=== PATIENT | female | born 1995 | race Caucasian/White ===

== ENCOUNTER 2023-05-28 12:28 | Emergency (ER) | payer OTHER, SELFPAY ==
[2023-05-28 13:19] VITALS: BP 129/95; PULSE 101; RESP 20; TEMP 37.1; O2SAT 99; BMI 38.3
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
[2023-05-28] MEDS: Fluorescein Sodium STRIP 1 STRIP EYE-RIGHT (15:21)
[2023-05-28 16:59] VITALS: BP 128/86; PULSE 98; RESP 16; O2SAT 97
== END 2023-05-28 17:05 | disposition home or self-care (01) ==
PROVIDERS: Emergency Provider Emergency Medicine
DX: H57.13 Ocular pain, bilateral (principal)
CPT/HCPCS: 99283; 99284

== ENCOUNTER 2023-07-15 11:21 | Emergency (ER) | payer OTHER, SELFPAY ==
[2023-07-15 11:36] VITALS: BP 142/98; PULSE 96; RESP 16; TEMP 36.9; O2SAT 97; BMI 32.6
--- NOTE | 2023-07-15 11:43 | ED.GENADULT ---
HPI - General Adult General Chief complaint: Abdominal Pain Stated complaint: Abd pain Time Seen by Provider: 07/15/23 16:24 History of Present Illness HPI narrative: 28 years old with no significant past medical history presents emergency room with 2 days' history of abdominal pain. Patient also reports nonbloody diarrhea and headache. Patient reports that the pain is localized in the lower quadrants, reports some increased urinary frequency and dysuria. Denies chest pain, shortness of breath, back pain, chills or fever. Reports 1 single episode of vomiting and nausea. Reports the pain is moderate in intensity. History is taken with the help of a Creole industrial controls technician Related Data Previous Rx's Medication Instructions Recorded loratadine 10 mg capsule 10 mg PO DAILY #14 caps 05/28/23 acetaminophen 500 mg tablet 1,000 mg (2 x 500 mg) PO Q6H PRN 07/15/23 (Acetaminophen Extra Strength) fever or pain #60 tabs ibuprofen 400 mg tablet 400 mg PO Q8H PRN pain #20 tabs 07/15/23 ondansetron 4 mg disintegrating 4 mg PO Q8H PRN nausea and 07/15/23 tablet vomiting #14 tabs Allergies Allergy/AdvReac Type Severity Reaction Status Date / Time No Known Allergies Allergy Verified 05/28/23 13:23 Review of Systems Review of Systems: Yes all other systems are reviewed and are negative [facility] Social History Social History Smoked in Last 30 Days: No Use of substances other than those prescribed or required for medical reasons: No Advance Directives: No Advance Directives Information Provided: Yes Patient : No Physical Exam ED Vital Signs: Vital Signs - 24 hr 07/15/23 11:36 07/15/23 16:29 Temperature 98.5 F 98.6 F Pulse Rate 96 98 Respiratory Rate 16 16 Blood Pressure 142/98 H 132/71 Pulse Oximetry 97 100 Oxygen Delivery Method Room Air Room Air BMI result Body Mass Index 32.6 General: Alert, Not in Distress Skin: No rash, warm HEENT: Atraumatic, No Exudate or Pharyngeal Erythema Resp: Normal Breath sounds bilaterally Cardio: Regular rate and Rhythm, Normal S1, S2 ABD: Abd soft, midly tender in suprapubic area , no guarding or rebound. Normal Bowel sounds. : No cva tenderness Neuro: Alert, oriented x4, PERRL Strenght 5/5 on all extremities Sensation is preserved in both lower and upper extremities Index to nose: normal Cranial Nerves II-XII grossly intact No dysarthria, or aphasia No neglet. Visual deal are normal bilaterally Psych: Cooperative, NO SI Course Course Course Narrative: Patient complains of headache, some abdominal pain some diarrhea for 24 hours, 1 episode of vomiting Labs and serology are ordered This is rapid medical exam done in triage pending full evaluation and dispo by ER provider Reevaluation(s) Reevaluation #1: Patient tolerated p.o. Physical exam is unremarkable and at this time I do not think she requires hospitalization or further observation. Patient's urinalysis shows some bacteria but no nitrites or leukocytes for which I do not think at this time she requires antibiotic however will send a urine culture to rule out UTI at this time I think viral syndrome is the most likely cause and will discharge home with Tylenol and Zofran. Time: 18:00 Medical Decision Making Medical Decision Making [facility] Narrative: 28 years old presenting to the emergency room with abdominal pain. Her vital signs are within normal limits and she does not appear to be in discomfort. Possible differential diagnosis includes a viral syndrome, UTI colitis less likely bowel obstruction or appendicitis. Admission/Observation Consideration of admission/observation: Escalation of care including admission/observation considered Lab Data [facility] Lab Attestation statement: I reviewed the patient's lab results. 07/15/23 16:40 07/15/23 16:40 Labs: Lab Results 07/15/23 07/15/23 07/15/23 Range/Units 13:00 16:16 16:40 WBC 10.5 (4.8-10.8) X10*3/uL RBC 4.08 L (4.20-5.50) X10*6/uL Hgb 11.6 L (12.0-16.0) g/dl Hct 34.3 L (37.0-47.0) % MCV 84.1 (80.0-98.0) fL MCH 28.4 (27.0-33.0) pg MCHC 33.8 (31.0-35.0) g/dl RDW 13.8 (11.0-16.0) % Plt Count 366 (160-400) X10*3/uL MPV 9.0 L (9.4-12.3) fL Immature Gran % (Auto) 0.3 (0.0-0.4) % Neut % (Auto) 57.9 (45-73) % Lymph % (Auto) 35.2 (20-40) % [place] % (Auto) 5.6 (2-11) % Eos % (Auto) 0.5 (0-4) % Baso % (Auto) 0.5 (0-2) % Lymph # (Auto) 3.7 (1.2-4.9) X10*3/uL [place] # (Auto) 0.6 (0.1-1.2) X10*3/uL Eos # (Auto) 0.1 (0.0-0.4) X10*3/uL Baso # (Auto) 0.1 (0.0-0.2) X10*3/uL Abs Immat Gran (auto) 0.03 (0.00-0.03) X10*3/uL Absolute Neuts (auto) 6.1 (2.0-8.3) x10*3/uL Absolute Nucleated RBC 0.000 (0.0-0.012) X10*3/uL Nucleated RBC % (auto) 0.0 (0.0-0.2) /100WBC Sodium 135 (135-145) mmol/L Potassium 3.8 (3.3-5.1) mmol/L Chloride 101 (96-108) mmol/L Carbon Dioxide 24 (22-29) mmol/L Anion Gap 14 (12-20) BUN 6 L (9-16) mg/dL Creatinine 0.63 (0.5-1.4) mg/dL Estim Creat Clear Calc 139.9 Estimated GFR > 60 Random Glucose 127 H (60-115) mg/dL Calcium 10.1 (8.4-10.2) mg/dL Total Bilirubin 0.6 (0.0-1.0) mg/dL Direct Bilirubin 0.2 (0.0-0.5) mg/dL AST 27 (5-31) U/L ALT 19 (0-31) U/L Alkaline Phosphatase 64 (39-117) U/L Total Protein 8.1 H (6.5-8.0) g/dL Albumin 4.1 (3.5-5.0) g/dL Lipase 9 (8-78) U/L Beta HCG, Quant 25581 mIU/mL Urine Color Dark Yellow Urine Appearance Cloudy Urine pH 5.5 (5.0-9.0) Ur Specific [place] >= 1.030 H (1.005-1.025) Urine Protein 30 (1+) H (Neg-Trace) mg/dL Urine Glucose (UA) >=1000 H (Negative) mg/dL Urine Ketones Trace (Negative) mg/dL Urine Blood Negative (Negative) Urine Nitrite Negative (Negative) Ur Leukocyte Esterase Negative (Negative) Urine RBC 0-2 (0-2) /HPF Urine WBC 0-5 (0-5) /HPF Ur Squamous Epith Cells >20 (0-2) /HPF Urine Bacteria 4+ (None Seen) Hyaline Casts 0-2 (0-2) /LPF Influenza Type A (PCR) NEGATIVE (Negative) Influenza Type B (PCR) NEGATIVE (Negative) RSV RNA Qual (PCR) NEGATIVE (Negative) SARS-CoV-2 RNA (RT-PCR) NEGATIVE (Negative) Discharge Plan Discharge Clinical Impression: Abdominal pain Patient Disposition: Home, Self-Care Additional Instructions: You were seen in the emergency room for what it looks like viral syndrome. We expect symptoms to resolve within the next few days. It is important to remain hydrated, drink at least 2 L of water every day. For nausea at home you can use Zofran 4 mg up to 3 times a day For the pain you can use Tylenol 1000 mg every 6 hours and ibuprofen 400 mg every 8 hours. Presented to the emergency room if your symptoms do not improve Follow-up with your primary care physician in a week. Prescriptions: New ondansetron 4 mg tablet,disintegrating 4 mg PO Q8H PRN (Reason: nausea and vomiting) Qty: 14 0RF ibuprofen 400 mg tablet 400 mg PO Q8H PRN (Reason: pain) Qty: 20 0RF acetaminophen [Acetaminophen Extra Strength] 500 mg tablet 1,000 mg PO Q6H PRN (Reason: fever or pain) Qty: 60 0RF No Action loratadine 10 mg capsule 10 mg PO DAILY Qty: 14 0RF
[2023-07-15 13:53] LABS: Influenza A PCR NEGATIVE (Negative); Influenza B PCR NEGATIVE (Negative); Resp Syncy Virus RNA Qual PCR NEGATIVE (Negative); SARS COV2 PCR INHOUSE NEGATIVE (Negative)
[2023-07-15 16:29] VITALS: BP 132/71; PULSE 98; RESP 16; TEMP 37; O2SAT 100
[2023-07-15 16:37] LABS: Appearance Urine Cloudy; Color Urine Dark Yellow; Glucose Urine UA >=1000 mg/dL (Negative); Leukocyte Esterase Urine Negative (Negative); Nitrite Urine Negative (Negative); PH 5.5 (5.0-9.0); Specific Gravity - Urine >= 1.030 (1.005-1.025); UMIC TRIGGER UACC YES; Urine Blood Negative (Negative); Urine Ketones Trace mg/dL (Negative); Urine Protein 30 (1+) mg/dL (Neg-Trace)
[2023-07-15 16:42] LABS: Bacteria Urine 4+ (None Seen); Hyaline Casts Urine 0-2 /LPF (0-2); RBC Urine 0-2 /HPF (0-2); Squamous Epithelial Cell Urine >20 /HPF (0-2); WBC Urine 0-5 /HPF (0-5)
[2023-07-15 16:44] LABS: MANUAL DIFF FLAG NO
[2023-07-15 16:45] LABS: Basophils Absolute Auto 0.1 X10*3/uL (0.0-0.2); Basophils Percent Auto 0.5 % (0-2); Eosinophils Absolute Auto 0.1 X10*3/uL (0.0-0.4); Eosinophils Percent Auto 0.5 % (0-4); Hematocrit 34.3 % (37.0-47.0); Hemoglobin 11.6 g/dl (12.0-16.0); Imm Gran Abs Auto 0.03 X10*3/uL (0.00-0.03); Imm Gran Pct Auto 0.3 % (0.0-0.4); Lymphocytes Absolute Auto 3.7 X10*3/uL (1.2-4.9); Lymphocytes Percent Auto 35.2 % (20-40); Mean Corpuscular HGB Conc 33.8 g/dl (31.0-35.0); Mean Corpuscular Hemoglobin 28.4 pg (27.0-33.0); Mean Corpuscular Volume 84.1 fL (80.0-98.0); Monocytes Absolute Auto 0.6 X10*3/uL (0.1-1.2); Monocytes Percent Auto 5.6 % (2-11); Neutrophils Absolute Auto 6.1 x10*3/uL (2.0-8.3); Neutrophils Percent Auto 57.9 % (45-73); Platelet Count 366 X10*3/uL (160-400); Red Blood Count 4.08 X10*6/uL (4.20-5.50); Red Cell Distribution Width 13.8 % (11.0-16.0); White Blood Count 10.5 X10*3/uL (4.8-10.8)
[2023-07-15 17:49] LABS: Alanine Aminotransferase 19 U/L (0-31); Albumin Level 4.1 g/dL (3.5-5.0); Alkaline Phosphatase 64 U/L (39-117); Anion Gap 14 (12-20); Aspartate Amino Transferase 27 U/L (5-31); Bilirubin Direct 0.2 mg/dL (0.0-0.5); Bilirubin Total 0.6 mg/dL (0.0-1.0); Blood Urea Nitrogen 6 mg/dL (9-16); Calcium 10.1 mg/dL (8.4-10.2); Carbon Dioxide 24 mmol/L (22-29); Chloride 101 mmol/L (96-108); Creatinine Clr Calc Pharmacy 139.9; Estimated Glomerular Filt Rate > 60; Glucose Random 127 mg/dL (60-115); Lipase 9 U/L (8-78); Potassium 3.8 mmol/L (3.3-5.1); Sodium 135 mmol/L (135-145); Total Protein 8.1 g/dL (6.5-8.0)
[2023-07-15 17:50] LABS: HCG Quantitative 14750 mIU/mL
[2023-07-15] MEDS: Ondansetron ODT 4 MG TAB.RAPDIS TRANSLINGU (19:24)
[2023-07-15] MEDS: Acetaminophen 325 MG TABLET 975 MG PO (19:25)
== END 2023-07-15 19:30 | disposition home or self-care (01) ==
PROVIDERS: Physician Assistant Medical; Emergency Provider Student in an Organized Health Care Education/Training Program
DX: K08.89 Other specified disorders of teeth and supporting structures (principal); Z11.52 Encounter for screening for COVID-19; Z20.822 Contact with and (suspected) exposure to COVID-19; Z79.899 Other long term (current) drug therapy
CPT/HCPCS: 0241U; 36415; 80048; 80076; 81001; 83690; 84702; 85025; 87086; 99283; 99284